=== PATIENT | female | born 1965 | race Caucasian/White ===

== ENCOUNTER 2022-12-06 08:09 | Day surgery (SDC) | payer OTHER ==
[~2022-12-06 08:09] MED LIST: Lactated Ringers 1,000 ML IV SCH; Sodium Chloride 0.9% 10 ML Syringe FLUSH PRN; Sodium Chloride 0.9% 2.5 ML Syringe FLUSH PRN; Sodium Chloride 0.9% 20 ML SDV IV PRN
[2022-12-06] MEDS ORDERED: Propofol 200 MG/20 ML SDV ONE ×2 (08:45→10:06)
[2022-12-06] MEDS ORDERED: ePHEDrine 50 MG/ML SDV ONE (09:53)
== END 2022-12-06 11:03 | disposition home or self-care (01) ==
LOC: MW.SDS 08:09
PROVIDERS: ATTEND Surgery
DX: Z12.11 Encounter for screening for malignant neoplasm of colon (principal); D12.2 Benign neoplasm of ascending colon; K57.30 Diverticulosis of large intestine without perforation or abscess without bleeding; A63.0 Anogenital (venereal) warts; I48.91 Unspecified atrial fibrillation; I10 Essential (primary) hypertension; K21.9 Gastro-esophageal reflux disease without esophagitis; R73.03 Prediabetes; E78.00 Pure hypercholesterolemia, unspecified; M19.90 Unspecified osteoarthritis, unspecified site; G89.29 Other chronic pain; M54.2 Cervicalgia; M54.9 Dorsalgia, unspecified; J02.9 Acute pharyngitis, unspecified; Z88.2 Allergy status to sulfonamides; Z88.1 Allergy status to other antibiotic agents; Z79.899 Other long term (current) drug therapy; Z79.84 Long term (current) use of oral hypoglycemic drugs; Z98.890 Other specified postprocedural states
CPT/HCPCS: 45380; 45385; J2704; J7120; 00812; J3490

== ENCOUNTER 2022-12-09 01:25 | Observation (INO) | payer OTHER ==
[2022-12-09 03:07] LABS: CARBON DIOXIDE,CO2 27.6 mmol/L (21.0-32.0); POTASSIUM,K 3.1 mmol/L (3.5-5.1)
[2022-12-09] MEDS ORDERED: Iopamidol 755 MG/ML 500 ML Multipack Bottle IVPUSH ONE (04:37)
[2022-12-09 05:23] LABS: CORONAVIRUS COVID-19 NAA NEGATIVE (NEGATIVE); INFLUENZA A NAA NEGATIVE (NEGATIVE); INFLUENZA B NAA NEGATIVE (NEGATIVE); RESPIRATORY SYNCYTIAL VIR NAA NEGATIVE (NEGATIVE)
[2022-12-09] MEDS ORDERED: Ondansetron 4 MG/2 ML SDV IVPUSH PRN (10:35)
[2022-12-09] MEDS ORDERED: Bisacodyl 5 MG Tab PO ONE (11:15)
[2022-12-09] MEDS: Rosuvastatin 10 MG Tab PO SCH (11:36)
[2022-12-09] MEDS: Venlafaxine 75 MG Cap.ER PO SCH (11:36)
[2022-12-09] MEDS: amLODIPine 5 MG Tab PO SCH (11:36)
[2022-12-09] MEDS: Sodium Chloride 0.9% 1,000 ML IV SCH ×2 (11:55→18:46)
[2022-12-10] MEDS: Sodium Chloride 0.9% 1,000 ML IV SCH ×2 (01:30→07:57)
[2022-12-10 06:11] LABS: CARBON DIOXIDE,CO2 24.7 mmol/L (21.0-32.0); POTASSIUM,K 2.6 mmol/L (3.5-5.1)
[2022-12-10] MEDS ORDERED: Potassium Chloride 20 MEQ in Premix Bag 1 BAG IV ONE (07:25)
[2022-12-10] MEDS: Potassium Chloride 100 ML IV SCH ×2 (07:57→10:40)
[2022-12-10] MEDS ORDERED: Potassium Chloride 10% 20 MEQ/15 ML Soln 30 ML UD Cup PO ONE (08:10)
[2022-12-10] MEDS: Rosuvastatin 10 MG Tab PO SCH (09:32)
[2022-12-10] MEDS: Venlafaxine 75 MG Cap.ER PO SCH (09:33)
[2022-12-10] MEDS: amLODIPine 5 MG Tab PO SCH (09:33)
[2022-12-10] MEDS ORDERED: Propofol 200 MG/20 ML SDV ONE ×3 (10:37→11:23)
[2022-12-10] MEDS ORDERED: ePHEDrine 50 MG/ML SDV ONE (11:05)
[2022-12-11] MEDS ORDERED: Venlafaxine 75 MG Cap.ER PO SCH (09:00)
[2022-12-11] MEDS ORDERED: Potassium Chloride 8 MEQ Tab.ER PO SCH (09:00)
== END 2022-12-10 17:10 | disposition home or self-care (01) ==
LOC: MW.ED 01:25 → MW.MS 06:17
PROVIDERS: ADMIT Surgery; ATTEND Surgery
DX: K57.30 Diverticulosis of large intestine without perforation or abscess without bleeding (principal); K76.0 Fatty (change of) liver, not elsewhere classified; I10 Essential (primary) hypertension; R73.03 Prediabetes; E78.00 Pure hypercholesterolemia, unspecified; E66.9 Obesity, unspecified; I48.91 Unspecified atrial fibrillation; G89.29 Other chronic pain; M54.9 Dorsalgia, unspecified; Z79.84 Long term (current) use of oral hypoglycemic drugs; Z79.899 Other long term (current) drug therapy; Z88.2 Allergy status to sulfonamides; Z88.1 Allergy status to other antibiotic agents; Z98.890 Other specified postprocedural states; Z20.822 Contact with and (suspected) exposure to COVID-19
CPT/HCPCS: 0241U; 36415; 45384; 74177; 80048; 80053; 82947; 84132; 85018; 85025; 85610; 85730; 86850; 86900; 86901; 96361; 96374; 96376; 99285; A9270; G0378; J2704; J3480; J7030; Q9967; 00811; J3490

== ENCOUNTER 2023-12-22 12:17 | Emergency (ER) | payer OTHER ==
[2023-12-22 13:12] LABS: BASOPHILS ABSOLUTE AUTO 0.07 K/uL (0.00-0.20); BASOPHILS PERCENT AUTO 0.6 % (0.0-1.0); EOSINOPHILS ABSOLUTE AUTO 0.19 K/uL (0.00-0.45); EOSINOPHILS PERCENT AUTO 1.7 % (0.0-6.0); HEMATOCRIT 43.9 % (37.0-47.0); HEMOGLOBIN 14.5 g/dL (12.0-16.0); IMMATURE GRAN ABSOLUTE AUTO 0.04 K/uL (0.00-0.05); IMMATURE GRAN PERCENT AUTO 0.4 % (0.0-0.4); LYMPHOCYTES ABSOLUTE AUTO 3.19 K/uL (1.00-4.80); LYMPHOCYTES PERCENT AUTO 29.2 % (24.0-44.0); MEAN CORPUSCULAR HEMOGLOBIN 29.7 pg (28.0-32.0); MEAN PLATELET VOLUME 9.4 fL (9.4-12.3); MONOCYTES ABSOLUTE AUTO 0.72 K/uL (0.00-0.80); MONOCYTES PERCENT AUTO 6.6 % (0.0-8.0); NEUTROPHILS PERCENT AUTO 61.5 % (41.0-71.0); PLATELET COUNT,PLT 356 K/uL (150-400); RED BLOOD CELL COUNT 4.88 M/uL (4.10-5.30); WHITE BLOOD CELL COUNT,WBC 10.91 K/uL (3.9-11.3)
[2023-12-22 13:37] LABS: A/G RATIO 0.8 (0.9-1.6); ALBUMIN 3.4 g/dL (3.4-5.0); BILIRUBIN TOTAL 0.4 mg/dL (0.2-1.0); CALCIUM 9.7 mg/dL (8.5-10.1); CARBON DIOXIDE,CO2 27.3 mmol/L (21.0-32.0); CREATININE 0.9 mg/dL (0.6-1.0); EST CRCL DRUG DOSING (CG) 67.89 mL/min; POTASSIUM,K 3.4 mmol/L (3.5-5.1); PROTEIN TOTAL,TP 7.5 g/dL (6.4-8.2)
[2023-12-22] MEDS: Sodium Chloride 0.9% 1,000 ML IV ONE (13:53)
== END 2023-12-22 15:41 | disposition home or self-care (01) ==
LOC: MW.ED 12:17
DX: R42 Dizziness and giddiness (principal); I10 Essential (primary) hypertension; E78.00 Pure hypercholesterolemia, unspecified; K21.9 Gastro-esophageal reflux disease without esophagitis; Z79.899 Other long term (current) drug therapy
CPT/HCPCS: 36415; 71045; 80053; 84484; 85025; 93005; 96360; 99285; J7030; 93010; 99282